=== PATIENT | male | born 1970 | race Caucasian/White ===

== ENCOUNTER 2024-02-12 07:23 | Outpatient (OUT) | payer BC, SELFPAY ==
--- NOTE | 2024-02-12 07:28 | MR_ITS ---
The [address] [address] Patient Name: ELKIN SIMON MRN: [facility]:[id number] date: 1970 Sex: M Assigned Patient Location: MRI Current Patient Location: Accession/Order Number: [id number] Exam Date: 02/12/2024 07:50 Report Date: 02/14/2024 06:24 At the request of: NON-STAFF PHYSICIAN Procedure: MR head/brain wo/w con EXAMINATION: MR head/brain wo/w con HISTORY: Dizziness, R42, Tinnitus right ear,H93.11,Hearing loss,H90.4 COMPARISON: No relevant comparison available. TECHNIQUE: A variety of imaging planes and parameters were utilized for visualization of suspected pathology. Images were performed without and with Dotarem contrast. FINDINGS: CEREBRUM: No edema, hemorrhage, mass, acute infarction, or inappropriate atrophy. CEREBELLUM: No edema, hemorrhage, mass, acute infarction, or inappropriate atrophy. BRAINSTEM: No edema, hemorrhage, mass, acute infarction, or inappropriate atrophy. CSF SPACES: Ventricles, cisterns, and sulci are appropriate for age. No hydrocephalus, subarachnoid hemorrhage, or mass. SKULL: No mass or other significant visible lesion. SINUSES: Limited views demonstrate no significant mucosal thickening or fluid. ORBITS: Limited views are unremarkable. IACS: 7 x 6 x 6 mm enhancing mass within the right internal auditory canal. INNER EARS: No abnormal signal intensity. MIDDLE EARS: No fluid or abnormal soft tissue. MASTOIDS: No fluid or abnormal soft tissue. MR/MR head/brain wo/w con IMPRESSION: 1. 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 2. No fluid or soft tissue within the middle ear. 3. No suspicious abnormality of the brain. Electronically authenticated by: DERREK SANTOS Date: 02/14/2024 06:24
--- NOTE | 2024-02-12 07:40 | XR_ITS ---
The [address] [address] Patient Name: ELKIN SIMON MRN: [id number] date: 1970 Sex: M Assigned Patient Location: MRI Current Patient Location: MRI Accession/Order Number: [id number] Exam Date: 02/12/2024 07:36 Report Date: 02/12/2024 07:50 At the request of: NON-STAFF PHYSICIAN Procedure: XR foreign body eye CARLOS EXAM: XR foreign body eye CARLOS HISTORY: Screening for MRI COMPARISON: None. TECHNIQUE: Frontal and lateral views of the orbits performed. FINDINGS: There is no metallic foreign body. The bony alignment and mineralization are normal. The bony orbits are unremarkable. The paranasal sinuses are unremarkable. There is dental amalgam. XR/XR foreign body eye CARLOS IMPRESSION: There is no metallic foreign body. Electronically authenticated by: VIOLETA REYES Date: 02/12/2024 07:50
== END 2024-02-12 07:24 | disposition home or self-care (01) ==
LOC: MRI 07:24
DX: R42 Dizziness and giddiness (principal); H90.41 Sensorineural hearing loss, unilateral, right ear, with unrestricted hearing on the contralateral side; H93.11 Tinnitus, right ear; D33.3 Benign neoplasm of cranial nerves
CPT/HCPCS: 70030; 70553; A9575

== ENCOUNTER 2025-04-08 08:12 | Outpatient (OUT) | payer BC, SELFPAY ==
--- NOTE | 2025-04-08 08:19 | MR_ITS ---
The [address] [address] Patient Name: ELKIN SIMON MRN: [id number] date: 1970 Sex: M Assigned Patient Location: RAD Current Patient Location: [facility] Accession/Order Number: [id number] Exam Date: 04/08/2025 09:00 Report Date: 04/08/2025 15:55 At the request of: NON-STAFF PHYSICIAN Procedure: MR head/brain wo/w con MRI BRAIN WITHOUT AND WITH INTRAVENOUS CONTRAST CLINICAL DATA: Dizziness, BPPV COMPARISON: 02/12/2024 FINDINGS: No restricted diffusion. Ventricles and sulci are normal in size and configuration for the patient's age. No shift midline structures. Basal cisterns are patent. Minimal periventricular and subcortical T2 FLAIR prolongation identified just of chronic small vessel vessel ischemic disease. Intracranial arterial vascular flow voids are preserved. Within the right IAC, 7 x 6 mm mass which demonstrates avid postcontrast enhancement consistent with acoustic neuroma. Otherwise the cisternal tiny lingular segments of the 7th and 8th cranial nerves unremarkable. Cochlea and semicircular canals unremarkable. No enhancing left-sided retrocochlear mass lesion identified. No abnormal enhancement identified elsewhere within the brain. Minor ethmoid sinus mucosal thickening. No paranasal sinus air-fluid levels. IMPRESSION: Stable 7 mm right IAC acoustic neuroma. Minimal chronic small vessel changes without evidence acute intracranial process by MRI. Impression dictated by: Jason Zuniga M.D. 04/08/2025 3:55 PM Dictation Location: [place] [address] Electronically authenticated by: [id number] Y Date: 04/08/2025 15:55
--- NOTE | 2025-04-08 08:24 | XR_ITS ---
[address] [address] Patient Name: ELKIN SIOMN MRN: [id number] date: 1970 Sex: M Assigned Patient Location: RAD Current Patient Location: [facility] Accession/Order Number: [id number] Exam Date: 04/08/2025 08:30 Report Date: 04/08/2025 08:48 At the request of: NON-STAFF PHYSICIAN MD Procedure: XR foreign body eye CARLOS Orbits 2 views. Reason for exam: Pre-MRI. COMPARISON: Orbits 02/12/2024. FINDINGS: No radiopaque foreign body. No bony destruction. XR/XR foreign body eye CARLOS IMPRESSION: No radiopaque foreign body. Impression dictated by: Benjamin Siegel Jr., D.ODanika 04/08/2025 8:48 AM Dictation Location: [place] [address] Electronically authenticated by: [id number] Y Date: 04/08/2025 08:48
== END 2025-04-08 08:13 | disposition home or self-care (01) ==
LOC: RAD 08:12
DX: H81.10 Benign paroxysmal vertigo, unspecified ear (principal); H90.41 Sensorineural hearing loss, unilateral, right ear, with unrestricted hearing on the contralateral side; D33.3 Benign neoplasm of cranial nerves
CPT/HCPCS: 70030; 70553; A9575